=== PATIENT | female | born 1955 | race African-American/Black ===

== ENCOUNTER 2018-03-23 22:45 | Emergency (ER) | payer OTHER ==
[~2018-03-23] VITALS: Ht 170.2 cm; Wt 77.1 kg
[2018-03-23 22:51] VITALS: BP 152/94
[2018-03-24 00:27] VITALS: BP 123/72
== END 2018-03-24 00:26 | disposition home or self-care (01) ==
LOC: MED 22:45
DX: S01.01XA Laceration without foreign body of scalp, initial encounter (principal); K21.9 Gastro-esophageal reflux disease without esophagitis; J44.9 Chronic obstructive pulmonary disease, unspecified; I10 Essential (primary) hypertension; Z88.6 Allergy status to analgesic agent; Z88.8 Allergy status to other drugs, medicaments and biological substances; W01.10XA Fall on same level from slipping, tripping and stumbling with subsequent striking against unspecified object, initial encounter; Y93.89 Activity, other specified; Y92.89 Other specified places as the place of occurrence of the external cause; Y99.8 Other external cause status
CPT/HCPCS: 70450; 99284

== ENCOUNTER 2018-12-23 20:31 | Emergency (ER) | payer OTHER ==
[~2018-12-23] VITALS: Ht 170.2 cm; Wt 79.8 kg
[2018-12-23 20:40] VITALS: BP 113/71
--- NOTE | 2018-12-23 20:48 | NUR ---
PT RETURNED TO LOBBY VIA ASSISTANCE.
--- NOTE | 2018-12-23 21:07 | NUR ---
PT TAKEN TO BED 12 VIA WC.
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
--- NOTE | 2018-12-23 21:23 | NUR ---
XRAY AT BEDSIDE
[2018-12-23] MEDS ORDERED: MORPHINE SULFATE 2 MG/ML SYR IM ONE (21:40)
--- NOTE | 2018-12-23 21:55 | NUR ---
OTHOPEDIC SHOE PLACED ON PT R FOOT, SIZE WOMENS LARGE. +CSM
--- NOTE | 2018-12-23 21:56 | NUR ---
PT GIVEN INSTRUCTION ON PROPER USE OF CRUTCHES. FITTED TO PT HEIGHT AND ARM LENGTH. PT GIVEN INSTRUCTION ON USE, INCLUDING SITTING TO STANDING AND VICE VERSA, INCLUDING WALKING. PT DEMONSTRATED SAFE USE FOR APPROXIMATELY 40 FEET, PT STATED SHE FELT COMFORTABLE WITH USE.
[2018-12-23 22:01] VITALS: BP 113/71
--- NOTE | 2018-12-23 22:03 | NUR ---
Patient discharged with v/s stable. Written and verbal after care instructions given and explained. Patient alert, oriented and verbalized understanding of instructions. Ambulatory with to car. All questions addressed prior to discharge. ID band removed. Patient advised to follow up with PMD. Opportunity to ask questions provided and answered.
== END 2018-12-23 22:03 | disposition home or self-care (01) ==
LOC: MED 20:31
DX: S90.111A Contusion of right great toe without damage to nail, initial encounter (principal); J44.9 Chronic obstructive pulmonary disease, unspecified; K21.9 Gastro-esophageal reflux disease without esophagitis; I10 Essential (primary) hypertension; Z88.6 Allergy status to analgesic agent; Z88.8 Allergy status to other drugs, medicaments and biological substances; W20.8XXA Other cause of strike by thrown, projected or falling object, initial encounter; Y93.89 Activity, other specified; Y92.89 Other specified places as the place of occurrence of the external cause; Y99.8 Other external cause status
CPT/HCPCS: 73630; 96372; 99283; J2270; Q0092

== ENCOUNTER 2019-11-30 03:22 | Emergency (ER) | payer OTHER ==
[~2019-11-30] VITALS: Ht 170.2 cm; Wt 68.0 kg
[2019-11-30 03:31] VITALS: BP 154/72
--- NOTE | 2019-11-30 03:33 | NUR ---
Dr. Alvarez examining patient.
--- NOTE | 2019-11-30 03:38 | NUR ---
PT TAKEN TO BED 12
[2019-11-30] MEDS ORDERED: LIDOCAINE MPF 1% 5 ML ONE (03:41)
[2019-11-30] MEDS ORDERED: LIDOCAINE MPF 1% 10 MG/ML VIAL INJ STA (03:44)
[2019-11-30] MEDS ORDERED: ONDANSETRON 4 MG ODT PO STA (04:09)
[2019-11-30] MEDS ORDERED: HYDROcodone/APAP 10/325 MG 1 TAB TAB PO STA (04:09)
[2019-11-30] MEDS ORDERED: KETOROLAC 30 MG/ML VIAL IM STA (04:09)
[2019-11-30 05:12] LABS: APPEARANCE,SPUN,BODY FLUID CLEAR (CLEAR); APPEARANCE,UNSPUN,BODY FLUID BLOODY (CLEAR); COLOR,BODY FLUID LT YELLOW (LT YELLOW); SPECIMENTYPE,BODY FLUID SYNOVIAL; TOTAL VOLUME,BODY FLUID 1.5 mL; WBC, BODY FLUID 0 /cu. mm.
[2019-11-30 05:18] LABS: RBC, BODY FLUID 254500 /cu. mm.
[2019-11-30 05:50] VITALS: BP 154/72
[2019-12-03 20:05] LABS: GLUCOSE,BODY FLUID 45 mg/dL
== END 2019-11-30 05:24 | disposition home or self-care (01) ==
LOC: MED 03:22
DX: M10.9 Gout, unspecified (principal); M13.861 Other specified arthritis, right knee
CPT/HCPCS: 20610; 36415; 82945; 84157; 87205; 89051; 96372; 99284; J1885; J2001; Q0162

== ENCOUNTER 2020-01-14 21:22 | Emergency (ER) | payer OTHER ==
[~2020-01-14] VITALS: Ht 170.2 cm; Wt 76.7 kg
[2020-01-14 21:37] VITALS: BP 139/89
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
--- NOTE | 2020-01-14 22:37 | NUR ---
Dr. Guerra examining patient.
[2020-01-14] MEDS ORDERED: KETOROLAC 30 MG/ML VIAL IM ONE (22:45)
--- NOTE | 2020-01-14 22:58 | NUR ---
PT TAKEN TO RADIOLOGY
--- NOTE | 2020-01-14 23:12 | NUR ---
PT RETURN FROM CT
--- NOTE | 2020-01-14 23:12 | NUR ---
X-Ray at bedside.
--- NOTE | 2020-01-14 23:42 | NUR ---
Patient's pain is 5/10.
--- NOTE | 2020-01-15 00:23 | NUR ---
Patient resting in bed with eyes closed. No distress noted. Bed in lowest position; side rail x1. Will continue to monitor patient.
[2020-01-15 00:48] VITALS: BP 137/88
--- NOTE | 2020-01-15 00:48 | NUR ---
Patient is okay to be discharged. Patient discharged with v/s stable. Written and verbal after care instructions given and explained. Patient alert, oriented and verbalized understanding of instructions. Ambulatory with steady gait. All questions addressed prior to discharge. ID band removed. Patient advised to follow up with PMD. Rx of Naprosyn given. Patient educated on indication of medication including possible reaction and side effects. Opportunity to ask questions provided and answered.Patient ambulated to the lobby with steady gait.
== END 2020-01-15 00:48 | disposition home or self-care (01) ==
LOC: MED 21:22
DX: S16.1XXA Strain of muscle, fascia and tendon at neck level, initial encounter (principal); S53.402A Unspecified sprain of left elbow, initial encounter; S93.401A Sprain of unspecified ligament of right ankle, initial encounter; V49.9XXA Car occupant (driver) (passenger) injured in unspecified traffic accident, initial encounter; Y93.89 Activity, other specified; Y92.89 Other specified places as the place of occurrence of the external cause; Y99.8 Other external cause status
CPT/HCPCS: 72125; 73080; 73610; 96372; 99284; J1885

== ENCOUNTER 2023-05-28 09:38 | Emergency (ER) | payer OTHER ==
[~2023-05-28] VITALS: Ht 170.2 cm; Wt 59.0 kg
[2023-05-28 10:06] VITALS: BP 165/101; PULSE 102; RESP 18; TEMP 97; O2SAT 98
[2023-05-28] MEDS ORDERED: COROTSOL OT ×2 (10:42→10:56)
[2023-05-28 10:54] VITALS: BP 155/98; PULSE 98; RESP 18; TEMP 97; O2SAT 99
== END 2023-05-28 10:59 | disposition home or self-care (01) ==
LOC: MED 09:38
DX: H60.93 Unspecified otitis externa, bilateral (principal); Z79.899 Other long term (current) drug therapy
CPT/HCPCS: 99281